=== PATIENT | male | born 1945 | race Caucasian/White ===

== ENCOUNTER 2017-05-22 15:43 | Emergency (ER) | payer MEDICARE, OTHER ==
--- NOTE | 2017-05-22 16:49 | EDM.PDOC ---
ED HPI GENERAL MEDICAL PROBLEM - General Chief Complaint: Neurological Problem Stated Complaint: numbness to face Time Seen by Provider: 05/22/17 16:44 Source of Information: Reports: Patient, Family History Limitations: Reports: No Limitations - History of Present Illness INITIAL COMMENTS - FREE TEXT/NARRATIVE: Pt states that he has been having right sided facial numbness for the past 2 weeks. [facility] and told to come to ER for evaluation and r/o stroke. denies weakness, only c/o numbness and pain at temporal area. Per pt was started on gabapentin and c/o headache after each administration and she stopped giving it and he has not c/o pain since discontinuation. No c/o weakness however states that pt has had an unsteady gait for the past 3 weeks. Onset Date: 04/30/17 Duration: Constant, Waxing/Waning Location: Reports: Face Quality: Reports: Ache, Throbbing Severity: Moderate Improves with: Reports: None Worsens with: Reports: Medication Associated Symptoms: Reports: No Other Symptoms - Related Data Allergies Allergy/AdvReac Type Severity Reaction Status Date / Time Unable to Assess Allergy Unverified 05/22/17 16:49 ED ROS GENERAL - Review of Systems Review Of Systems: ROS reveals no pertinent complaints other than HPI. Constitutional: Reports: Night Sweats HEENT: Reports: Rhinitis Neurological: Reports: Headache, Numbness, Gait Disturbance ED EXAM, NEURO - Physical Exam Exam: See Below Exam Limited By: No Limitations General Appearance: Alert, WD/WN, No Apparent Distress Eye Exam: Bilateral Eye: EOMI, PERRL Ears: Hearing Grossly Normal, Other (Right ear canal with small area scab and moderate effussion noted. ) Nose: Normal Inspection, Normal Mucosa, No Blood Head Exam: Atraumatic, Normocephalic Respiratory/Chest: No Respiratory Distress, Lungs Clear, Normal Breath Sounds, No Accessory Muscle Use, Chest Non-Tender Cardiovascular: Normal Peripheral Pulses, Regular Rate, Rhythm, No Edema, No Gallop, No JVD, No Murmur, No Rub Neurological: Alert, Normal Mood/Affect, Normal Dorsiflexion, CN II-XII Intact, Normal Plantar Flexion, Normal Reflexes, No Motor/Sensory Deficits, Oriented x 3 , Abnormal Gait Course - Vital Signs Last Recorded V/S: Last Vital Signs Temp 98.0 F 05/22/17 16:10 Pulse 78 05/22/17 16:10 Resp 16 05/22/17 16:10 BP 148/84 H 05/22/17 16:10 Pulse Ox 97 05/22/17 16:10 - Orders/Labs/Meds Orders: Active Orders 24 hr Category Date Time Status EKG Documentation Completion [RC] STAT Care 05/22/17 16:42 Active Labs: Laboratory Tests 05/22/17 05/22/17 Range/Units 16:53 16:53 WBC 10.2 H (5.0-10.0) 10^3/uL RBC 4.69 (4.6-6.2) 10^6/uL Hgb 14.9 (14.0-18.0) g/dL Hct 43.8 (40.0-54.0) % MCV 93.4 (80-100) fL MCH 31.8 (27.0-34.0) pg MCHC 34.0 (33.0-35.0) g/dL Plt Count 222 (150-450) 10^3/uL Neut % (Auto) 57.6 (42.2-75.2) % Lymph % (Auto) 28.6 (20.5-50.1) % [place] % (Auto) 8.9 H (2-8) % Eos % (Auto) 4.3 H (1.0-3.0) % Baso % (Auto) 0.6 (0.0-1.0) % Sodium 139 (135-145) mmol/L Potassium 4.2 (3.6-5.0) mmol/L Chloride 101 (101-111) mmol/L Carbon Dioxide 27.0 (21.0-31.0) mmol/L Anion Gap 15.2 BUN 17 (7-18) mg/dL Creatinine 1.3 (0.6-1.3) mg/dL Est Cr Clr Drug Dosing 52.76 mL/min Estimated GFR (MDRD) 55 Glucose 92 (74-105) mg/dL Calcium 9.3 (8.4-10.2) mg/dl - Radiology Interpretation Free Text/Narrative:: No acute findings on CT head. Departure - Departure Time of Disposition: 17:43 Disposition: Home, Self-Care 01 Condition: Good Clinical Impression: Acute neuritis Acute middle ear effusion Qualifiers: Laterality: right Qualified Code(s): H65.191 - Other acute nonsuppurative otitis media, right ear - Discharge Information Instructions: Labyrinthitis, Otitis Media With Effusion Forms: ED Department Discharge - My Orders Last 24 Hours: My Active Orders 05/22/17 16:42 EKG Documentation Completion [RC] STAT - Assessment/Plan Last 24 Hours: My Active Orders 05/22/17 16:42 EKG Documentation Completion [RC] STAT
[2017-05-22 17:53] VITALS: BP 167/83
--- NOTE | 2017-05-29 01:34 | EKG ---
05/22/2017 - MARISOL WHATLEY - This 12-lead EKG shows an atrial paced rhythm with a ventricular rate of 72 with occasional PVC. No other comments are made. [facility] /[id number]
== END 2017-05-22 18:11 | disposition home or self-care (01) ==
LOC: DL.ED 15:43
DX: M79.2 Neuralgia and neuritis, unspecified (principal); H65.191 Other acute nonsuppurative otitis media, right ear
CPT/HCPCS: 36415; 70450; 80048; 85025; 93005; 93010; 99282; 99284

== ENCOUNTER 2017-09-03 06:58 | Emergency (ER) | payer OTHER, MEDICARE ==
[2017-09-03 07:07] VITALS: BP 95/75
[2017-09-03] MEDS ORDERED: Pantoprazole 40 MG Vial IVPUSH ONE (07:11)
--- NOTE | 2017-09-03 07:13 | EDM.PDOC ---
ED HPI GENERAL MEDICAL PROBLEM - General Chief Complaint: General Stated Complaint: BLEEDING FROM RECTUM, THROUGH IN UP Time Seen by Provider: 09/03/17 07:09 Source of Information: Reports: Patient, Family () History Limitations: Reports: No Limitations - History of Present Illness INITIAL COMMENTS - FREE TEXT/NARRATIVE: 72 yo white male c/o N&V w/ Blood per rectum @ 4:00 AM. Pt. also c/o heartburn for last week and smokes 1 1/2 ppd cigs. Pt. had Flu SHot on Mon. @ [facility] Onset: Today Onset Date: 09/03/17 Onset Time: 04:00 Duration: Hour(s): Location: Reports: Chest, Generalized Severity: Moderate Improves with: Reports: None Worsens with: Reports: None Associated Symptoms: Reports: Chest Pain, Diaphoresis Chest Pain Score (Numeric/FACES): 5 - Related Data Allergies Allergy/AdvReac Type Severity Reaction Status Date / Time No Known Allergies Allergy Verified 09/03/17 07:50 Home Meds: Home Meds Albuterol [Take Home: Albuterol 6.7 GM, 1 INH Pack] 2 puff INH QID 05/22/17 [ History] Budesonide/Formoterol Fumarate [Symbicort 160-4.5 Mcg Inhaler] 2 puff INH BID [History] Calcium Carbonate/Vitamin D3 [Calcium 250+D] 1 tab PO DAILY 05/22/17 [History] ClonazePAM [KlonoPIN] 1 - 2 mg PO DAILY PRN 05/22/17 [History] Clopidogrel [Plavix] 75 mg PO DAILY 05/22/17 [History] Cyanocobalamin (Vitamin B-12) [Vitamin B-12] 1 tab PO DAILY 05/22/17 [History] DULoxetine [Cymbalta] 30 mg PO DAILY 05/22/17 [History] DULoxetine [Cymbalta] 60 mg PO DAILY 05/22/17 [History] Donepezil [Aricept] 10 mg PO DAILY 05/22/17 [History] Furosemide 20 mg PO DAILY 05/22/17 [History] Gabapentin [Neurontin] 100 mg PO TID 05/22/17 [History] Loratadine 10 mg PO DAILY 05/22/17 [History] Memantine [Namenda] 10 mg PO BID 05/22/17 [History] Metoprolol Succinate 25 mg PO DAILY 05/22/17 [History] Multivitamin [Multiple Vitamins] 1 tab PO DAILY 05/22/17 [History] Naproxen 500 mg PO BID PRN 05/22/17 [History] Pantoprazole [ProTONIX] 40 mg PO DAILY 05/22/17 [History] Pravastatin Sodium 10 mg PO DAILY 05/22/17 [History] Pyridoxine HCl 50 mg PO DAILY 05/22/17 [History] QUEtiapine [SEROquel] 12.5 mg PO BID PRN 05/22/17 [History] Past Medical History Gastrointestinal History: Reports: GERD Neurological History: Reports: TIA Psychiatric History: Reports: Alzheimers Disease Social & Family History - Tobacco Use Smoking Status *Q: Current Every Day Smoker Years of Tobacco use: 45 Packs/Tins Daily: 1 - Recreational Drug Use Recreational Drug Use: No ED ROS GENERAL - Review of Systems Review Of Systems: See Below Constitutional: Reports: No Symptoms HEENT: Reports: No Symptoms Respiratory: Reports: No Symptoms Cardiovascular: Reports: Chest Pain Endocrine: Reports: No Symptoms GI/Abdominal: Reports: Bloody Stool, Nausea, Vomiting, Other (heartburn) : Reports: No Symptoms Musculoskeletal: Reports: No Symptoms Skin: Reports: No Symptoms Neurological: Reports: No Symptoms Psychiatric: Reports: No Symptoms Hematologic/Lymphatic: Reports: No Symptoms Immunologic: Reports: No Symptoms ED EXAM, GENERAL - Physical Exam Exam: See Below Exam Limited By: No Limitations General Appearance: Alert, WD/WN, No Apparent Distress, Anxious Eye Exam: Bilateral Eye: EOMI, PERRL Ears: Normal External Exam Nose: Normal Inspection, Normal Mucosa Throat/Mouth: Normal Inspection, Normal Lips Head: Atraumatic, Normocephalic Neck: Normal Inspection, Supple Respiratory/Chest: No Respiratory Distress, Lungs Clear, Normal Breath Sounds Cardiovascular: Normal Peripheral Pulses, Regular Rate, Rhythm, No Edema, No Gallop, No JVD Peripheral Pulses: 2+: Femoral (L), Femoral (R) GI/Abdominal: Normal Bowel Sounds, Soft, Non-Tender Rectal (Males) Exam: Normal Rectal Tone, Bloody Stool, Heme + Stool Back Exam: Normal Inspection Extremities: Normal Inspection, Normal Range of Motion, Non-Tender Neurological: Alert, Oriented, CN II-XII Intact, Normal Cognition Psychiatric: Normal Affect, Normal Mood, Anxious Skin Exam: Warm, Dry Lymphatic: No Adenopathy Course - Vital Signs Last Recorded V/S: Last Vital Signs Temp 35.8 C 09/03/17 07:01 Pulse 60 09/03/17 07:01 Resp 22 H 09/03/17 07:01 BP 95/75 09/03/17 07:01 Pulse Ox 100 09/03/17 07:01 - Orders/Labs/Meds Labs: Laboratory Tests 09/03/17 09/03/17 09/03/17 Range/Units 07:23 07:23 07:23 WBC 14.8 H (5.0-10.0) 10^3/uL RBC 3.38 L (4.6-6.2) 10^6/uL Hgb 10.8 L D (14.0-18.0) g/dL Hct 32.3 L (40.0-54.0) % MCV 95.6 (80-100) fL MCH 32.0 (27.0-34.0) pg MCHC 33.4 (33.0-35.0) g/dL Plt Count 220 (150-450) 10^3/uL Neut % (Auto) 75.7 H (42.2-75.2) % Lymph % (Auto) 20.1 L (20.5-50.1) % [place] % (Auto) 3.2 (2-8) % Eos % (Auto) 0.6 L (1.0-3.0) % Baso % (Auto) 0.4 (0.0-1.0) % PT 10.3 (9.0-12.0) SEC INR 1.0 (0.9-1.2) APTT 23.5 (22.0-34.0) SEC D-Dimer, Quantitative 716 H (0-400) ng/mL Sodium 138 (135-145) mmol/L Potassium 4.1 (3.6-5.0) mmol/L Chloride 105 (101-111) mmol/L Carbon Dioxide 24.0 (21.0-31.0) mmol/L Anion Gap 13.1 BUN 31 H (7-18) mg/dL Creatinine 1.3 (0.6-1.3) mg/dL Est Cr Clr Drug Dosing 51.15 mL/min Estimated GFR (MDRD) 55 BUN/Creatinine Ratio 23.84 Glucose 213 H (74-105) mg/dL Calcium 8.4 (8.4-10.2) mg/dl Total Bilirubin 0.6 (0.2-1.0) mg/dL AST 19 (10-42) IU/L ALT 10 (10-60) IU/L Alkaline Phosphatase 54 (42-121) IU/L Troponin I < 0.02 (0.00-0.02) ng/ml Total Protein 5.7 L (6.7-8.2) g/dl Albumin 3.5 (3.2-5.5) g/dl Globulin 2.2 Albumin/Globulin Ratio 1.59 Urine Color (YELLOW) Urine Appearance (CLEAR) Urine pH (5.0-9.0) Ur Specific [place] (1.005-1.030) Urine Protein (NEGATIVE) Urine Glucose (UA) (NEGATIVE) Urine Ketones (NEGATIVE) Urine Occult Blood (NEGATIVE) Urine Nitrite (NEGATIVE) Urine Bilirubin (NEGATIVE) Urine Urobilinogen (0.2-1.0) mg/dL Ur Leukocyte Esterase (NEGATIVE) Urine RBC /HPF Urine WBC (0-5/HPF) /HPF Ur Epithelial Cells /HPF Urine Bacteria (0-FEW/HPF) /HPF Urine Mucus /LPF 09/03/17 Range/Units 10:30 WBC (5.0-10.0) 10^3/uL RBC (4.6-6.2) 10^6/uL Hgb (14.0-18.0) g/dL Hct (40.0-54.0) % MCV (80-100) fL MCH (27.0-34.0) pg MCHC (33.0-35.0) g/dL Plt Count (150-450) 10^3/uL Neut % (Auto) (42.2-75.2) % Lymph % (Auto) (20.5-50.1) % [place] % (Auto) (2-8) % Eos % (Auto) (1.0-3.0) % Baso % (Auto) (0.0-1.0) % PT (9.0-12.0) SEC INR (0.9-1.2) APTT (22.0-34.0) SEC D-Dimer, Quantitative (0-400) ng/mL Sodium (135-145) mmol/L Potassium (3.6-5.0) mmol/L Chloride (101-111) mmol/L Carbon Dioxide (21.0-31.0) mmol/L Anion Gap BUN (7-18) mg/dL Creatinine (0.6-1.3) mg/dL Est Cr Clr Drug Dosing mL/min Estimated GFR (MDRD) BUN/Creatinine Ratio Glucose (74-105) mg/dL Calcium (8.4-10.2) mg/dl Total Bilirubin (0.2-1.0) mg/dL AST (10-42) IU/L ALT (10-60) IU/L Alkaline Phosphatase (42-121) IU/L Troponin I (0.00-0.02) ng/ml Total Protein (6.7-8.2) g/dl Albumin (3.2-5.5) g/dl Globulin Albumin/Globulin Ratio Urine Color Yellow (YELLOW) Urine Appearance Clear (CLEAR) Urine pH 6.0 (5.0-9.0) Ur Specific [place] 1.010 (1.005-1.030) Urine Protein Negative (NEGATIVE) Urine Glucose (UA) Negative (NEGATIVE) Urine Ketones Negative (NEGATIVE) Urine Occult Blood Negative (NEGATIVE) Urine Nitrite Negative (NEGATIVE) Urine Bilirubin Negative (NEGATIVE) Urine Urobilinogen 0.2 (0.2-1.0) mg/dL Ur Leukocyte Esterase Negative (NEGATIVE) Urine RBC Not seen /HPF Urine WBC 0-5 (0-5/HPF) /HPF Ur Epithelial Cells Rare /HPF Urine Bacteria Rare (0-FEW/HPF) /HPF Urine Mucus Not seen /LPF Meds: Medications Discontinued Medications Generic Name Dose Route Start Last Admin Trade Name Freq PRN Reason Stop Dose Admin Al Hydroxide/Mg Hydroxide 30 ml 09/03/17 07:30 09/03/17 07:33 Gi Cocktail PO 09/03/17 07:31 30 ml ONETIME ONE Administration Sodium Chloride 1,000 mls @ 125 mls/hr 09/03/17 07:15 09/03/17 07:28 Normal Saline IV 125 mls/hr ASDIRECTED TISHA Administration Iopamidol 100 ml 09/03/17 08:15 09/03/17 09:09 Isovue-370 (76%) IVPUSH 09/03/17 08:16 73 ml ONETIME ONE Administration Pantoprazole Sodium 40 mg 09/03/17 07:11 09/03/17 07:28 Protonix Iv IVPUSH 09/03/17 07:12 40 mg ONETIME ONE Administration Departure - Departure Time of Disposition: 10:57 Disposition: DC/Tfer to Acute Hospital 02 Condition: Fair Clinical Impression: Gastrointestinal bleed Qualifiers: GI bleed type/associated pathology: unspecified gastrointestinal hemorrhage type Qualified Code(s): K92.2 - Gastrointestinal hemorrhage, unspecified - Discharge Information Referrals: PCP,Not In Area [Primary Care Provider] - Forms: ED Department Discharge
[2017-09-03] MEDS ORDERED: Sodium Chloride 0.9% 1,000 ML IV SCH (07:15)
[2017-09-03] MEDS ORDERED: GI Cocktail Oral Solution 30 ML PO ONE (07:30)
[2017-09-03 07:52] LABS: CHLORIDE,CL 105 mmol/L (101-111); SODIUM,NA 138 mmol/L (135-145)
[2017-09-03] MEDS ORDERED: Iopamidol 755 Mg/ML 100 ML Bottle IVPUSH ONE (08:15)
--- NOTE | 2017-09-05 13:19 | EKG ---
09/03/2017 - MARISOL WHATLEY - A 12-lead EKG shows normal sinus rhythm with heart rate of 76. PVCs noted on this 12-lead EKG. Nonspecific ST-T wave changes noted on lead 2 and V5, V4, V6. [facility] /[id number]
== END 2017-09-03 10:30 ==
LOC: DL.ED 06:58
DX: K92.2 Gastrointestinal hemorrhage, unspecified (principal); K21.9 Gastro-esophageal reflux disease without esophagitis; F17.210 Nicotine dependence, cigarettes, uncomplicated; Z79.899 Other long term (current) drug therapy
CPT/HCPCS: 36415; 71010; 71260; 80053; 81001; 82272; 84484; 85025; 85379; 85610; 85730; 96360; 96361; 99285; A9270; C9113; J7030; Q9967; 99284

== ENCOUNTER → 2019-04-18 | Outpatient (CLI) | payer OTHER, MEDICARE ==
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
== END ==
LOC: DL.CT 14:12
PROVIDERS: ATTEND Family Medicine
DX: M47.26 Other spondylosis with radiculopathy, lumbar region (principal); M54.6 Pain in thoracic spine; M54.2 Cervicalgia; M50.30 Other cervical disc degeneration, unspecified cervical region; M47.812 Spondylosis without myelopathy or radiculopathy, cervical region
CPT/HCPCS: 72125; 72128; 72131

== ENCOUNTER 2021-03-12 10:36 | Inpatient (IN) | payer OTHER, MEDICARE ==
[2021-03-12 12:11] LABS: ANION GAP 14.2 mEq/L (7-13)
[2021-03-12] MEDS ORDERED: Piperacillin/Tazobactam 3.375 GM in Sodium Chloride 0.9% 100 ML IV ONE (12:15)
--- NOTE | 2021-03-12 12:39 | EDM.PDOC ---
ED HPI GENERAL MEDICAL PROBLEM - General Chief Complaint: Bite:Animal, Insect Stated Complaint: BIT BY CAT HAND SWOLLEN Time Seen by Provider: 03/12/21 11:05 Source of Information: Reports: Patient History Limitations: Reports: Altered Mental Status (mild dementia) - History of Present Illness INITIAL COMMENTS - FREE TEXT/NARRATIVE: ED with spouse reports bit or scratched by cat 2 days prior, immediately wshed with "alcohol and applied antibiotic ointment to area. Last night started swelling and redness. worse this am. Feel fever chills at home. Trying to catch granddaughters cats. Spouse reports tame barmn cats and not used to him handling them. Believes will be able to isolate animals and can check with family to determine if vaccinated. Left Hand Pain Score (Numeric/FACES): 6 - Related Data Allergies Allergy/AdvReac Type Severity Reaction Status Date / Time bupropion [From Wellbutrin] Allergy Abdominal Verified 03/12/21 13:58 Pain Home Meds: Home Meds Albuterol [Take Home: Albuterol 6.7 GM, 1 INH Pack] 2 puff INH QID PRN 05/22/17 [History] Budesonide/Formoterol Fumarate [Symbicort 160-4.5 Mcg Inhaler] 2 puff INH BID 05/22/17 [History] Calcium Carbonate/Vitamin D3 [Calcium 250+D] 1 tab PO DAILY 05/22/17 [History] ClonazePAM [KlonoPIN] 1 mg PO DAILY PRN 05/22/17 [History] Clopidogrel [Plavix] 75 mg PO DAILY 05/22/17 [History] Cyanocobalamin (Vitamin B-12) [Vitamin B-12] 1,000 mcg PO DAILY 05/22/17 [History] DULoxetine [Cymbalta] 60 mg PO DAILY 05/22/17 [History] Donepezil [Aricept] 10 mg PO DAILY 05/22/17 [History] Furosemide 20 mg PO DAILY 05/22/17 [History] Loratadine 10 mg PO DAILY 05/22/17 [History] Memantine [Namenda] 10 mg PO BID 05/22/17 [History] Metoprolol Succinate 25 mg PO DAILY 05/22/17 [History] Multivitamin [Multiple Vitamins] 1 tab PO DAILY 05/22/17 [History] Pravastatin Sodium 10 mg PO BEDTIME 05/22/17 [History] Pyridoxine HCl (Vitamin B6) [Pyridoxine HCl] 50 mg PO DAILY 05/22/17 [History] QUEtiapine [SEROquel] 12.5 mg PO BID 05/22/17 [History] Brimonidine Tartrate [Brimonidine Tartrate 0.2% Ophth Soln] 1 drop EYEBOTH BID 03/12/21 [History] Past Medical History HEENT History: Reports: Cataract, Glaucoma, Hard of Hearing, Impaired Vision Cardiovascular History: Reports: High Cholesterol, Hypertension, Pacemaker Respiratory History: Reports: COPD, Sleep Apnea Gastrointestinal History: Reports: GERD Genitourinary History: Reports: None Musculoskeletal History: Reports: Arthritis Neurological History: Reports: Alzheimers Disease, TIA Psychiatric History: Reports: Alzheimers Disease, Depression Endocrine/Metabolic History: Reports: Diabetes, Type II Hematologic History: Reports: None Immunologic History: Reports: None Oncologic (Cancer) History: Reports: None Dermatologic History: Reports: None - Infectious Disease History Infectious Disease History: Reports: Chicken Pox, Measles, Mumps - Past Surgical History Head Surgeries/Procedures: Reports: None HEENT Surgical History: Reports: Oral Surgery Cardiovascular Surgical History: Reports: Pacer Respiratory Surgical History: Reports: None GI Surgical History: Reports: Colonoscopy, Hernia, Inguinal Male Surgical History: Reports: Circumcision Endocrine Surgical History: Reports: None Neurological Surgical History: Reports: None Musculoskeletal Surgical History: Reports: Other (See Below) Other Musculoskeletal Surgeries/Procedures:: S/P WRIST SUGERY Oncologic Surgical History: Reports: None Dermatological Surgical History: Reports: None Social & Family History - Family History Family Medical History: No Pertinent Family History - Tobacco Use Tobacco Use Status *Q: Current Every Day Tobacco User Years of Tobacco use: 60 Packs/Tins Daily: 1 Second Hand Smoke Exposure: No - Caffeine Use Caffeine Use: Reports: Soda - Recreational Drug Use Recreational Drug Use: No ED ROS GENERAL - Review of Systems Review Of Systems: Comprehensive ROS is negative, except as noted in HPI. Constitutional: Reports: Chills HEENT: Reports: No Symptoms Respiratory: Reports: No Symptoms Cardiovascular: Reports: No Symptoms GI/Abdominal: Reports: No Symptoms Musculoskeletal: Reports: Hand Pain Skin: Reports: Wound (left dorsal hand) Neurological: Reports: Pre-Existing Deficit ED EXAM, ANIMAL BITE - Physical Exam Exam: See Below Exam Limited By: No Limitations General Appearance: Alert, Mild Distress (with movement left hand), Thin Eye Exam: Bilateral Eye: EOMI Ears: Normal External Exam Nose: Normal Inspection Throat/Mouth: Normal Inspection Head: Atraumatic, Normocephalic Neck: Normal Inspection Respiratory/Chest: No Respiratory Distress, Lungs Clear, Normal Breath Sounds Cardiovascular: Normal Peripheral Pulses, Regular Rate, Rhythm GI/Abdominal: Normal Bowel Sounds, Soft Back Exam: Normal Inspection Extremities: Joint Swelling (left hand) Neurological: Alert, Oriented (person), Memory Loss Recent Events Psychiatric: Normal Affect Skin Exam: Warm/Dry, Other (left hand swollen dorsal redness 4 small puncture wounds lateral hand between 4th and 5th MCP no drainage. ) Course - Vital Signs Last Recorded V/S: Last Vital Signs Temp 99.2 F 03/13/21 11:50 Pulse 64 03/13/21 11:50 Resp 18 03/13/21 11:50 BP 127/54 L 03/13/21 11:50 Pulse Ox 97 03/13/21 11:50 - Orders/Labs/Meds Orders: Medication Orders Acetaminophen (Acetaminophen 325 Mg Tab) 650 mg PO Q4H PRN PRN Reason: Pain (Mild 1-3)/fever Last Admin: 03/12/21 20:44 Dose: 650 mg Documented by: Admin: 03/12/21 15:37 Dose: 650 mg Documented by: LION Albuterol (Albuterol 6.7 Gm Inhaler) 0 gm INH QID PRN PRN Reason: Shortness of Breath Brimonidine Tartrate (Brimonidine 0.15% Ophth Soln 5 Ml Bottle) 0 ml EYEBOTH BID [facility] [place] Last Admin: 03/13/21 09:05 Dose: 1 drop Documented by: Admin: 03/12/21 20:54 Dose: 1 drop Documented by: STEFANO Clonazepam (Clonazepam 0.5 Mg Tab) 1 mg PO DAILY PRN PRN Reason: Agitation Clopidogrel Bisulfate (Clopidogrel 75 Mg Tab) 75 mg PO DAILY [facility] [place] Last Admin: 03/13/21 09:12 Dose: 75 mg Documented by: VARGAS Cyanocobalamin (Cyanocobalamin (Vitamin B12) 1,000 Mcg Tab) 1,000 mcg PO DAILY [facility] [place] Last Admin: 03/13/21 09:12 Dose: 1,000 mcg Documented by: VARGAS Dextrose/Water (50% Dextrose In Water 50 Ml Syringe) 50 ml IV Q15M PRN PRN Reason: Hypoglycemia Donepezil HCl (Donepezil 10 Mg Tab) 10 mg PO DAILY [facility] [place] Last Admin: 03/13/21 09:12 Dose: 10 mg Documented by: VARGAS Duloxetine HCl (Duloxetine 30 Mg Cap) 60 mg PO DAILY [facility] [place] Last Admin: 03/13/21 09:45 Dose: 60 mg Documented by: VARGAS Glucagon (Glucagon,Human Recombinant 1 Mg Vial) 1 mg IM Q15M PRN PRN Reason: Hypoglycemia Heparin Sodium (Porcine) (Heparin Sodium 5,000 Units/Ml Vial) 5,000 units SUBCUT Q12HR [facility] [place] Last Admin: 03/13/21 09:14 Dose: 5,000 units Documented by: Admin: 03/12/21 20:54 Dose: 5,000 units Documented by: Admin: 03/12/21 15:38 Dose: 5,000 units Documented by: LION Vancomycin HCl 1 gm/ Sodium (Chloride) 250 mls @ 166.667 mls/hr IV Q12H [facility] [place] Last Admin: 03/13/21 03:05 Dose: 166.667 mls/hr Documented by: Admin: 03/12/21 15:40 Dose: 166.667 mls/hr Documented by: LION Insulin Human Lispro (Insulin Lispro 100 Units/Ml 3 Ml Vial) 0 unit SUBCUT WITHMEALSANDBED [facility] [place]; Protocol Last Admin: 03/13/21 12:18 Dose: 1 unit Documented by: Admin: 03/13/21 08:00 Dose: Not Given Documented by: Admin: 03/12/21 21:06 Dose: Not Given Documented by: Admin: 03/12/21 17:45 Dose: Not Given Documented by: LION Loratadine (Loratadine 10 Mg Tab) 10 mg PO DAILY [facility] [place] Last Admin: 03/13/21 09:11 Dose: 10 mg Documented by: VARGAS Memantine (Memantine 10 Mg Tab) 10 mg PO BID [facility] [place] Last Admin: 03/13/21 09:12 Dose: 10 mg Documented by: Admin: 03/12/21 20:45 Dose: 10 mg Documented by: STEFANO Metoprolol Succinate (Metoprolol Succinate 25 Mg Tab.Er) 25 mg PO DAILY [facility] [place] Last Admin: 03/13/21 09:13 Dose: 25 mg Documented by: VARGAS Miscellaneous Information (Check Nicotine Patch) 1 ea TRDERM BEDTIME [facility] [place] Last Admin: 03/12/21 20:53 Dose: 1 ea Documented by: STEFANO Mometasone Furoate/Formoterol Fumar (Formoterol/Mometasone 200-5 Mcg 8.8 Gm Inhaler) 0 puff IH BID [facility] [place] Last Admin: 03/13/21 09:06 Dose: 2 puff Documented by: Admin: 03/12/21 20:53 Dose: 2 puff Documented by: STEFANO Multivitamins/Minerals (Multivitamins, Therapeutic With Minerals Tab) 1 tab PO DAILY [facility] [place] Last Admin: 03/13/21 09:44 Dose: 1 tab Documented by: VARGAS Nicotine (Nicotine 21 Mg/24 Hr Patch) 21 mg TRDERM DAILY [facility] [place] Last Admin: 03/13/21 09:09 Dose: 21 mg Documented by: Admin: 03/12/21 16:06 Dose: 21 mg Documented by: LION Ondansetron HCl (Ondansetron 4 Mg/2 Ml Sdv) 4 mg IVPUSH Q4H PRN PRN Reason: Nausea/Vomiting Pravastatin Sodium (Pravastatin 20 Mg Tab) 10 mg PO BEDTIME [facility] [place] Last Admin: 03/12/21 20:46 Dose: 10 mg Documented by: STEFANO Pyridoxine HCl (Vitamin B6-Pyridoxine 100 Mg Tab) 50 mg PO DAILY [facility] [place] Last Admin: 03/13/21 09:45 Dose: 50 mg Documented by: VARGAS Quetiapine Fumarate (Quetiapine 25 Mg Tab) 12.5 mg PO BID [facility] [place] Last Admin: 03/13/21 09:12 Dose: 12.5 mg Documented by: Admin: 03/12/21 20:45 Dose: 12.5 mg Documented by: STEFANO Sodium Chloride (Sodium Chloride 0.9% 10 Ml Syringe) 10 ml FLUSH ASDIRECTED PRN PRN Reason: Keep Vein Open Vancomycin HCl (Pharmacy To Dose - Vancomycin) 0 dose .XX ASDIRECTED [facility] [place] Labs: Laboratory Tests 03/12/21 03/12/21 03/12/21 Range/Units 11:44 11:44 11:44 WBC 19.1 H (5.0-10.0) 10^3/uL RBC 4.78 (4.6-6.2) 10^6/uL Hgb 15.3 D (14.0-18.0) g/dL Hct 44.9 (40.0-54.0) % MCV 93.9 (80-100) fL MCH 32.0 (27.0-34.0) pg MCHC 34.1 (33.0-35.0) g/dL Plt Count 279 (150-450) 10^3/uL Neut % (Auto) 85.9 H (42.2-75.2) % Lymph % (Auto) 7.2 L (20.5-50.1) % [place] % (Auto) 6.4 (2-8) % Eos % (Auto) 0.3 L (1.0-3.0) % Baso % (Auto) 0.2 (0.0-1.0) % Sodium 140 (136-145) mmol/L Potassium 4.2 (3.5-5.1) mmol/L Chloride 102 (98-107) mmol/L Carbon Dioxide 28 (21-32) mmol/L Anion Gap 14.2 H (7-13) mEq/L BUN 15 (7-18) mg/dL Creatinine 1.31 H (0.70-1.30) mg/dL Est Cr Clr Drug Dosing 53.49 mL/min Estimated GFR (MDRD) 54 BUN/Creatinine Ratio 11.5 (No establ ref range) Glucose 173 H (70-99) mg/dL Lactic Acid 1.6 (0.4-2.0) mmol/L Calcium 8.8 (8.5-10.1) mg/dL Magnesium (1.8-2.4) mg/dL Total Bilirubin 0.7 (0.2-1.0) mg/dL AST 14 L (15-37) U/L ALT 18 (16-63) U/L Alkaline Phosphatase 81 (46-116) U/L Total Protein 7.5 (6.4-8.2) g/dL Albumin 4.0 (3.4-5.0) g/dL Globulin 3.5 Albumin/Globulin Ratio 1.1 Vitamin B12 (193-986) pg/mL Folate (8.6-58.9) ng/mL 03/12/21 Range/Units 11:44 WBC (5.0-10.0) 10^3/uL RBC (4.6-6.2) 10^6/uL Hgb (14.0-18.0) g/dL Hct (40.0-54.0) % MCV (80-100) fL MCH (27.0-34.0) pg MCHC (33.0-35.0) g/dL Plt Count (150-450) 10^3/uL Neut % (Auto) (42.2-75.2) % Lymph % (Auto) (20.5-50.1) % [place] % (Auto) (2-8) % Eos % (Auto) (1.0-3.0) % Baso % (Auto) (0.0-1.0) % Sodium (136-145) mmol/L Potassium (3.5-5.1) mmol/L Chloride (98-107) mmol/L Carbon Dioxide (21-32) mmol/L Anion Gap (7-13) mEq/L BUN (7-18) mg/dL Creatinine (0.70-1.30) mg/dL Est Cr Clr Drug Dosing mL/min Estimated GFR (MDRD) BUN/Creatinine Ratio (No establ ref range) Glucose (70-99) mg/dL Lactic Acid (0.4-2.0) mmol/L Calcium (8.5-10.1) mg/dL Magnesium 2.0 (1.8-2.4) mg/dL Total Bilirubin (0.2-1.0) mg/dL AST (15-37) U/L ALT (16-63) U/L Alkaline Phosphatase (46-116) U/L Total Protein (6.4-8.2) g/dL Albumin (3.4-5.0) g/dL Globulin Albumin/Globulin Ratio Vitamin B12 1203 H (193-986) pg/mL Folate > 20.0 (8.6-58.9) ng/mL Meds: Medications Generic Name Dose Route Start Last Admin Trade Name Freq PRN Reason Stop Dose Admin Acetaminophen 650 mg 03/12/21 12:56 03/12/21 20:44 Acetaminophen 325 Mg Tab PO 650 mg Q4H PRN Administration Pain (Mild 1-3)/fever Albuterol 0 gm 03/12/21 18:19 Albuterol 6.7 Gm Inhaler INH QID PRN Shortness of Breath Brimonidine Tartrate 0 ml 03/12/21 21:00 03/13/21 09:05 Brimonidine 0.15% Ophth Soln 5 Ml Bottle EYEBOTH 1 drop BID TISHA Administration Clonazepam 1 mg 03/12/21 19:02 Clonazepam 0.5 Mg Tab PO DAILY PRN Agitation Clopidogrel Bisulfate 75 mg 03/13/21 09:00 03/13/21 09:12 Clopidogrel 75 Mg Tab PO 75 mg DAILY TISHA Administration Cyanocobalamin 1,000 mcg 03/13/21 09:00 03/13/21 09:12 Cyanocobalamin (Vitamin B12) 1,000 Mcg Tab PO 1,000 mcg DAILY TISHA Administration Dextrose/Water 50 ml 03/12/21 13:00 50% Dextrose In Water 50 Ml Syringe IV Q15M PRN Hypoglycemia Donepezil HCl 10 mg 03/13/21 09:00 03/13/21 09:12 Donepezil 10 Mg Tab PO 10 mg DAILY TISHA Administration Duloxetine HCl 60 mg 03/13/21 09:00 03/13/21 09:45 Duloxetine 30 Mg Cap PO 60 mg DAILY TISHA Administration Glucagon 1 mg 03/12/21 13:00 Glucagon,Human Recombinant 1 Mg Vial IM Q15M PRN Hypoglycemia Heparin Sodium (Porcine) 5,000 units 03/12/21 14:00 03/13/21 09:14 Heparin Sodium 5,000 Units/Ml Vial SUBCUT 5,000 units Q12HR TISHA Administration Vancomycin HCl 1 gm/ Sodium 250 mls @ 166.667 mls/hr 03/12/21 15:00 03/13/21 03:05 Chloride IV 166.667 mls/hr Q12H TISHA Administration Insulin Human Lispro 0 unit 03/12/21 18:00 03/13/21 12:18 Insulin Lispro 100 Units/Ml 3 Ml Vial SUBCUT 1 unit WITHMEALSANDBED TISHA Administration Protocol Loratadine 10 mg 03/13/21 09:00 03/13/21 09:11 Loratadine 10 Mg Tab PO 10 mg DAILY TISHA Administration Memantine 10 mg 03/12/21 21:00 03/13/21 09:12 Memantine 10 Mg Tab PO 10 mg BID TISHA Administration Metoprolol Succinate 25 mg 03/13/21 09:00 03/13/21 09:13 Metoprolol Succinate 25 Mg Tab.Er PO 25 mg DAILY TISHA Administration Miscellaneous Information 1 ea 03/12/21 21:00 03/12/21 20:53 Check Nicotine Patch TRDERM 1 ea BEDTIME TISHA Administration Mometasone Furoate/Formoterol Fumar 0 puff 03/12/21 21:00 03/13/21 09:06 Formoterol/Mometasone 200-5 Mcg 8.8 Gm Inhaler IH 2 puff BID TISHA Administration Multivitamins/Minerals 1 tab 03/13/21 09:00 03/13/21 09:44 Multivitamins, Therapeutic With Minerals Tab PO 1 tab DAILY TISHA Administration Nicotine 21 mg 03/12/21 13:00 03/13/21 09:09 Nicotine 21 Mg/24 Hr Patch TRDERM 21 mg DAILY TISHA Administration Ondansetron HCl 4 mg 03/12/21 12:56 Ondansetron 4 Mg/2 Ml Sdv IVPUSH Q4H PRN Nausea/Vomiting Pravastatin Sodium 10 mg 03/12/21 21:00 03/12/21 20:46 Pravastatin 20 Mg Tab PO 10 mg BEDTIME TISHA Administration Pyridoxine HCl 50 mg 03/13/21 09:00 03/13/21 09:45 Vitamin B6-Pyridoxine 100 Mg Tab PO 50 mg DAILY TISHA Administration Quetiapine Fumarate 12.5 mg 03/12/21 21:00 03/13/21 09:12 Quetiapine 25 Mg Tab PO 12.5 mg BID TISHA Administration Sodium Chloride 10 ml 03/12/21 12:56 Sodium Chloride 0.9% 10 Ml Syringe FLUSH ASDIRECTED PRN Keep Vein Open Vancomycin HCl 0 dose 03/12/21 12:59 Pharmacy To Dose - Vancomycin .XX ASDIRECTED TISHA Discontinued Medications Generic Name Dose Route Start Last Admin Trade Name Freq PRN Reason Stop Dose Admin Diphtheria/Tetanus/Acell Pertussis 0.5 ml 03/12/21 12:43 03/12/21 13:14 Diphtheria,Pertussis(Acell),Tetanus Vaccine 0.5 Ml Syringe IM 03/12/21 12:44 0.5 ml .ONCE ONE Administration Piperacillin Sod/Tazobactam 100 mls @ 200 mls/hr 03/12/21 12:15 03/12/21 13:10 Sod 3.375 gm/ Sodium Chloride IV 03/12/21 12:44 200 mls/hr ONETIME ONE Administration Sodium Chloride 1,000 mls @ 200 mls/hr 03/12/21 13:45 03/13/21 04:59 Normal Saline IV 200 mls/hr ASDIRECTED TISHA Administration - Re-Assessments/Exams Free Text/Narrative Re-Assessment/Exam: 03/13/21 12:34 Left hand and fingers swollen. Ring to left 4th finger cut off by RN. Returned to patient's . Departure - Departure Time of Disposition: 14:15 Disposition: Admitted As Inpatient 68 Condition: Good Clinical Impression: Animal bite Cellulitis Qualifiers: Site of cellulitis: extremity Site of cellulitis of extremity: upper extremity Laterality: left Qualified Code(s): L03.114 - Cellulitis of left upper limb - Discharge Information *PRESCRIPTION DRUG MONITORING PROGRAM REVIEWED*: No *COPY OF PRESCRIPTION DRUG MONITORING REPORT IN PATIENT ALFONZO: No Sepsis Event Note (ED) - Evaluation Sepsis Screening Result: No Definite Risk
[2021-03-12] MEDS ORDERED: Diphtheria,Pertussis(Acell),Tetanus Vaccine 0.5 ML Syringe IM ONE (12:43)
[2021-03-12] MEDS ORDERED: Sodium Chloride 0.9% 10 ML Syringe FLUSH PRN (12:56)
[2021-03-12] MEDS ORDERED: Ondansetron 4 MG/2 ML SDV IVPUSH PRN (12:56)
[2021-03-12] MEDS ORDERED: 50% Dextrose in Water 50 ML Syringe IV PRN (13:00)
[2021-03-12] MEDS ORDERED: Glucagon,Human Recombinant 1 MG Vial IM PRN (13:00)
--- NOTE | 2021-03-12 13:07 | PCM.SN.2 ---
- Free Text/Narrative Note: START OF DOCTOR SHUBHAMMIKimberly HISTORY AND PHYSICAL / CONSULTATION NOTE Chief Complaint: Right hand pain History of Present Illness: The patient is a 75-year-old male who presents for complaint of right hand pain and swelling. Patient has moderate to severe dementia and is unable to provide provide much history in terms of history of present illness. Per the patient's the patient woke up at approximately 6 AM on this morning of March 12, 2021 with edema and pain of the dorsal aspect of his right hand. Since that time erythema has progressed. He presents for further evaluation Surgical History: Circumcision, right inguinal herniorrhaphy, left inguinal herniorrhaphy, oral surgery, right wrist surgery, left wrist surgery, pacemaker placement, right eye cataract surgery, left eye cataract surgery Family History: Stroke, diabetes, coronary disease, hypertension Social History: Tobacco: Active smoker Alcohol: Denies current use. Patient has history of extensive abuse Caffeine: Coffee, cola Drugs: Currently none. In the past has used marijuana, as well as presumed amphetamine use Allergies: Bupropion Code Status: DNR, DNI Pertinent Laboratory Results / Pertinent Radiology Results / Pertinent Diagnostic Results / Pertinent Vital Signs: Blood pressure 136/74, pulse 60, respirations 16, temperature 98.8 degrees, 1 her percent room air, creatinine 1.31, white blood count 8.1 Physical Examination: General: -Alert -No acute distress -No dyspnea -No tachypnea Head: -Atraumatic -Normocephalic Eyes: -Pupils equally round and reactive to light and accommodation -Extraocular muscles intact Neurological: -Cranial nerves II-XII intact Neck: -No jugular venous distention -No thyromegaly -No cervical lymphadenopathy Heart: -Regular rate -Regular rhythm -No murmurs -No gallops -No rubs Lungs: -No wheeze -No rhonchi -No rales Abdomen: -Normal bowel sounds in all four quadrants -No rebound -No guarding -No tenderness Extremities: -2/4 pulse in all four extremities -No clubbing -No cyanosis -There is edema present of the dorsal aspect of the left hand. Erythema is present as well which tracks proximally -No calf tenderness present bilaterally -Negative Homans sign bilaterally Musculoskeletal: -5/5 bilateral upper extremity strength with the exception of decreased left hand acid patroller strength due to edema and pain -5/5 bilateral lower extremity strength -Sensorium of bilateral upper extremities are equal and intact -Sensorium of bilateral lower extremities are equal and intact Additional Details / Additional Findings / Exceptions / Miscellaneous: Assessment / Plan: Left hand cellulitis. IV vancomycin to be dosed by pharmacy. We will demarcate and date the margin of erythema daily to ensure resection Arthritis Degenerative disc disease History of left lower lobe pulmonary density. Due to the patient's dementia I would advise against further evaluation/monitoring however I will leave this at the discretion of the patient's and have the patient follow-up with his primary care physician or provider to schedule CT chest with IV contrast if further evaluation is desired Chronic kidney disease, baseline creatinine approximately 1.3. Will monitor creatinine intermittently. IV normal saline at 50 mils per hour History of TIA Anxiety Sick sinus syndrome, status post pacemaker placement COPD/reactive airway disease Diabetes. Will check fasting glucose before every meal and at bedtime and provide suicide scale GERD Hyperlipidemia Hypertension Smoker. Patient becomes regarding smoking cessation. Nicotine patch 21 mg daily Depression Alzheimer's dementia Seasonal allergies Obstructive sleep apnea. CPAP/BiPAP: Okay to use home device and/or pressure when sleeping if the patient uses CPAP/BiPAP at home No history of alcohol use. Check B12, folate, magnesium, ammonia levels DVT prophylaxis. Heparin 5000 units subcutaneously every 12 hours Disposition: Anticipate discharge within 48 to 72 hours. I will await input of the patient's home medications for me to review and reconcile END OF DOCTOR EMAMIS HISTORY AND PHYSICAL / CONSULTATION NOTE
[2021-03-12] MEDS: Acetaminophen 325 MG Tab PO PRN ×2 (15:37→20:44)
[2021-03-12] MEDS: Heparin Sodium 5,000 Units/ML Vial SUBCUT SCH ×2 (15:38→20:54)
[2021-03-12] MEDS: Nicotine 21 MG/24 Hr Patch TRDERM SCH ×2 (15:39→16:06)
[2021-03-12] MEDS: Sodium Chloride 0.9% 1,000 ML IV SCH ×2 (16:05→22:27)
[2021-03-12] MEDS: Insulin Lispro 100 Units/ML 3 ML Vial SUBCUT SCH ×2 (17:45→21:06)
[2021-03-12] MEDS ORDERED: Albuterol 6.7 GM Inhaler INH PRN (18:19)
[2021-03-12] MEDS ORDERED: ClonazePAM 0.5 MG Tab PO PRN (19:02)
[2021-03-12] MEDS: Memantine 10 MG Tab PO SCH (20:45)
[2021-03-12] MEDS: QUEtiapine 25 MG Tab PO SCH (20:45)
[2021-03-12] MEDS: Pravastatin 20 MG Tab PO SCH (20:46)
[2021-03-12] MEDS: Formoterol/Mometasone 200-5 MCG 8.8 GM Inhaler IH SCH (20:53)
[2021-03-12] MEDS: Brimonidine 0.15% Ophth Soln 5 ML Bottle EYEBOTH SCH (20:54)
[2021-03-13] MEDS: Sodium Chloride 0.9% 1,000 ML IV SCH (04:59)
--- NOTE | 2021-03-13 07:25 | PCM.SN.2 ---
- Free Text/Narrative Note: START OF DOCTOR SARITHA PROGRESS NOTE Subjective: The patient has moderate to severe dementia and is unable to provide too many details with regards to meaningful feedback. At the present time he denies fever, rigors. Indicates that his left hand pain has improved. He endorses no other complaints. I explained to the patient his current medical condition and plan of care and have answered all of his questions Objective: General: -Alert -No acute distress -No dyspnea -No tachypnea Heart: -Regular rate -Regular rhythm -No murmurs -No gallops -No rubs Lungs: -No wheeze -No rhonchi -No rales Abdomen: -Normal bowel sounds in all four quadrants -No rebound -No guarding -No tenderness Extremities: -2/4 pulse in all four extremities -No clubbing -No cyanosis -No edema Additional Details / Additional Findings / Exceptions / Miscellaneous: Erythema of the dorsal aspect of the left hand has receded and overall the degree of erythema has decreased as well Pertinent Laboratory Results / Pertinent Radiology Results / Pertinent Diagnostic Results / Pertinent Vital Signs: Vital signs stable, white blood count 5.3, hemoglobin 12.2 Assessment / Plan: Left hand cellulitis. IV vancomycin to be dosed by pharmacy. We will demarcate and date the margin of erythema daily to ensure resection Arthritis Degenerative disc disease History of left lower lobe pulmonary density. Due to the patient's dementia I would advise against further evaluation/monitoring however I will leave this at the discretion of the patient's and have the patient follow-up with his primary care physician or provider to schedule CT chest with IV contrast if further evaluation is desired Chronic kidney disease, baseline creatinine approximately 1.3. Will monitor creatinine intermittently. IV normal saline at 50 mils per hour History of TIA. Plavix 75 mg p.o. daily. 1010 mg p.o. nightly Anxiety. Klonopin 1 mg p.o. daily Sick sinus syndrome, status post pacemaker placement COPD/reactive airway disease. Symbicort 160/4.5 mc puffs twice daily Diabetes. Will check fasting glucose before every meal and at bedtime and provide suicide scale GERD Hyperlipidemia. Potassium 10 mg p.o. nightly Hypertension. Metoprolol ER 25 mg p.o. daily Smoker. Patient becomes regarding smoking cessation. Nicotine patch 21 mg daily Depression. Cymbalta 60 mg p.o. daily for Seroquel 12.5 mg p.o. twice daily Alzheimer's dementia. Aricept 10 mg p.o. daily plus Namenda 10 mg p.o. twice daily plus Seroquel 12.5 mg p.o. twice daily Seasonal allergies. Claritin 10 mg p.o. daily Obstructive sleep apnea. CPAP/BiPAP: Okay to use home device and/or pressure when sleeping if the patient uses CPAP/BiPAP at home Remote history of alcohol use. Vitamin B-12 1000 mcg p.o. daily plus vitamin B6 50 mg p.o. daily plus multivitamin 1 tab p.o. daily Glaucoma. Brimonidine 0.2%: 1 drop in both eyes twice daily DVT prophylaxis. Heparin 5000 units subcutaneously every 12 hours Disposition: Anticipate discharge on the morning of March 14, 2021 END OF DOCTOR MELARA PROGRESS NOTE
[2021-03-13] MEDS: Insulin Lispro 100 Units/ML 3 ML Vial SUBCUT SCH ×4 (08:00→20:15)
[2021-03-13] MEDS: Brimonidine 0.15% Ophth Soln 5 ML Bottle EYEBOTH SCH ×2 (09:05→20:14)
[2021-03-13] MEDS: Formoterol/Mometasone 200-5 MCG 8.8 GM Inhaler IH SCH ×2 (09:06→20:16)
[2021-03-13] MEDS: Nicotine 21 MG/24 Hr Patch TRDERM SCH (09:09)
[2021-03-13] MEDS: Loratadine 10 MG Tab PO SCH (09:11)
[2021-03-13] MEDS: Memantine 10 MG Tab PO SCH ×2 (09:12→20:14)
[2021-03-13] MEDS: QUEtiapine 25 MG Tab PO SCH ×2 (09:12→20:15)
[2021-03-13] MEDS: Donepezil 10 MG Tab PO SCH (09:12)
[2021-03-13] MEDS: Clopidogrel 75 MG Tab PO SCH (09:12)
[2021-03-13] MEDS: Cyanocobalamin (Vitamin B12) 1,000 MCG Tab PO SCH (09:12)
[2021-03-13] MEDS: Metoprolol Succinate 25 MG Tab.ER PO SCH (09:13)
[2021-03-13] MEDS: Heparin Sodium 5,000 Units/ML Vial SUBCUT SCH ×2 (09:14→20:15)
[2021-03-13] MEDS: Multivitamins, Therapeutic with Minerals Tab PO SCH (09:44)
[2021-03-13] MEDS: DULoxetine 30 MG Cap PO SCH (09:45)
[2021-03-13] MEDS: Vitamin B6-pyridOXINE 100 MG Tab PO SCH (09:45)
[2021-03-13] MEDS: Pravastatin 20 MG Tab PO SCH (20:14)
[2021-03-13] MEDS: Acetaminophen 325 MG Tab PO PRN (20:18)
[2021-03-14] MEDS: Memantine 10 MG Tab PO SCH (08:40)
[2021-03-14] MEDS: Metoprolol Succinate 25 MG Tab.ER PO SCH (08:40)
[2021-03-14] MEDS: DULoxetine 30 MG Cap PO SCH (08:40)
[2021-03-14] MEDS: QUEtiapine 25 MG Tab PO SCH (08:42)
[2021-03-14] MEDS: Loratadine 10 MG Tab PO SCH (08:44)
[2021-03-14] MEDS: Multivitamins, Therapeutic with Minerals Tab PO SCH (08:44)
[2021-03-14] MEDS: Cyanocobalamin (Vitamin B12) 1,000 MCG Tab PO SCH (08:44)
[2021-03-14] MEDS: Vitamin B6-pyridOXINE 100 MG Tab PO SCH (08:46)
[2021-03-14] MEDS: Donepezil 10 MG Tab PO SCH (08:47)
[2021-03-14] MEDS: Clopidogrel 75 MG Tab PO SCH (08:49)
[2021-03-14] MEDS: Brimonidine 0.15% Ophth Soln 5 ML Bottle EYEBOTH SCH (08:50)
[2021-03-14 08:51] VITALS: BP 138/74; PULSE 72
[2021-03-14] MEDS: Insulin Lispro 100 Units/ML 3 ML Vial SUBCUT SCH (08:59)
[2021-03-14] MEDS: Formoterol/Mometasone 200-5 MCG 8.8 GM Inhaler IH SCH (09:12)
[2021-03-14] MEDS: Nicotine 21 MG/24 Hr Patch TRDERM SCH (09:17)
[2021-03-14] MEDS: Heparin Sodium 5,000 Units/ML Vial SUBCUT SCH (09:17)
--- NOTE | 2021-03-17 09:10 | PCM.SN.2 ---
- Free Text/Narrative Note: START OF DOCTOR [facility]AM[facility] DISCHARGE SUMMARY Date of Admission: March 12, 2021 Date of Discharge: 8:03 AM on March 14, 2021 Primary Diagnosis: Left hand cellulitis Secondary Diagnosis: Arthritis Degenerative disc disease History of left lower lobe pulmonary density. Due to the patient's dementia I would advise against further evaluation/monitoring Chronic kidney disease, baseline creatinine approximately 1.3 History of TIA Anxiety Sick sinus syndrome, status post pacemaker placement COPD/reactive airway disease Diabetes GERD Hyperlipidemia Hypertension Smoker Depression Alzheimer's dementia Seasonal allergies Obstructive sleep apnea Remote history of alcohol abuse Glaucoma Consultations: None Disposition: The patient may follow-up with his primary care physician or provider as needed. As mentioned above patient has a history of left lower lobe pulmonary density which I would advise against further evaluation/monitoring for given his moderate to severe dementia Discharge Medications: Multivitamin 1 tab p.o. daily Pravastatin 10 mg p.o. nightly Vitamin B6 50 mg p.o. daily Seroquel 12.5 mg p.o. twice daily Lasix 20 mg p.o. daily Calcium plus vitamin D: Unspecified dose: 1 tab p.o. daily Aricept 10 mg p.o. daily Cymbalta 60 mg p.o. daily Claritin 10 mg p.o. daily Namenda 10 mg p.o. twice daily Metoprolol ER 25 mg p.o. daily Bactrim DS 1 tab p.o. twice daily. Quantity 14. 0 refills Proventil HFA: 90 mcg/spray: 2 puffs 4 times daily as needed shortness of breath or wheeze Brimonidine 0.2% 1 drop in both eyes twice daily Symbicort 160/4.5 mc puffs twice daily Klonopin 1 mg p.o. daily Plavix and 5 mg p.o. daily Vitamin B12 1000 mcg p.o. daily Condition on discharge: Good Disposition: Home END OF DOCTOR EMAM[facility] DISCHARGE SUMMARY
== END 2021-03-14 09:30 | disposition home or self-care (01) | DRG 603 ==
LOC: DL.ED 10:36 → DL.MS 12:56
PROVIDERS: ADMIT Internal Medicine; ATTEND Internal Medicine
DX: L03.114 Cellulitis of left upper limb (principal); S61.452A Open bite of left hand, initial encounter; N18.9 Chronic kidney disease, unspecified; M19.90 Unspecified osteoarthritis, unspecified site; I49.5 Sick sinus syndrome; F41.9 Anxiety disorder, unspecified; G47.30 Sleep apnea, unspecified; I10 Essential (primary) hypertension; J44.9 Chronic obstructive pulmonary disease, unspecified; E11.22 Type 2 diabetes mellitus with diabetic chronic kidney disease; I12.9 Hypertensive chronic kidney disease with stage 1 through stage 4 chronic kidney disease, or unspecified chronic kidney disease; Z20.822 Contact with and (suspected) exposure to COVID-19; E78.5 Hyperlipidemia, unspecified; K21.9 Gastro-esophageal reflux disease without esophagitis; E11.9 Type 2 diabetes mellitus without complications; F32.9 Major depressive disorder, single episode, unspecified; G30.9 Alzheimer's disease, unspecified; F02.80 Dementia in other diseases classified elsewhere, unspecified severity, without behavioral disturbance, psychotic disturbance, mood disturbance, and anxiety; G47.33 Obstructive sleep apnea (adult) (pediatric); H40.9 Unspecified glaucoma; J30.2 Other seasonal allergic rhinitis; H54.7 Unspecified visual loss; F17.210 Nicotine dependence, cigarettes, uncomplicated; H91.90 Unspecified hearing loss, unspecified ear; Z71.6 Tobacco abuse counseling; Z86.73 Personal history of transient ischemic attack (TIA), and cerebral infarction without residual deficits; Z88.8 Allergy status to other drugs, medicaments and biological substances; Z79.899 Other long term (current) drug therapy; Z98.41 Cataract extraction status, right eye; Z98.42 Cataract extraction status, left eye; Z95.0 Presence of cardiac pacemaker; Z98.890 Other specified postprocedural states; Z28.82 Immunization not carried out because of caregiver refusal; Z79.02 Long term (current) use of antithrombotics/antiplatelets; Z79.51 Long term (current) use of inhaled steroids; W55.01XA Bitten by cat, initial encounter
CPT/HCPCS: 36415; 80053; 82140; 82607; 82746; 82947; 83605; 83735; 85025; 90715; 99221; 99231; 99238; 99284; A9270-GY; J1644; J1815-GY; J2543; J3370; J7030; J7050; U0002